=== PATIENT | female | born 1960 | race Caucasian/White ===

== ENCOUNTER → 2017-06-20 | Outpatient (CLI) | payer BC ==
[2017-06-20 14:01] LABS: BASO # 0.1 K/mm3 (0.0-0.2); BASO % 1.1 % (0.0-1.0); EOS # 0.1 K/mm3 (0.0-0.50); EOS % 1.5 % (0.0-3.0); LARGE UNSTAINED CELL # 0.2 K/mm3 (0.0-0.4); LARGE UNSTAINED CELL % 2.5 % (0.0-4.0); LYMPH # 1.7 K/mm3 (1.5-4.5); LYMPH % 23.9 % (24.0-44.0); MEAN CORPUSCULAR HEMOGLOBIN 33.5 pg (27.0-33.0); MEAN CORPUSCULAR HGB CONC 33.3 g/dl (32.0-36.5); MEAN CORPUSCULAR VOLUME 100.5 fl (80.0-96.0); MONO # 0.3 K/mm3 (0.0-0.8); NEUTROPHILS # 4.2 K/mm3 (1.8-7.7); PLATELET COUNT, AUTOMATED 301 k/mm3 (150-450); RED CELL DISTRIBUTION WIDTH 12.3 % (11.5-14.5); WHITE BLOOD COUNT 6.4 K/mm3 (4.0-10.0)
[2017-06-20 14:42] LABS: ALBUMIN 4.3 GM/DL (3.2-5.2); ALBUMIN/GLOBULIN RATIO 1.23 (1.00-1.93); ALKALINE PHOSPHATASE 87 U/L (45-117); ALT/SGPT 30 U/L (12-78); ANION GAP 8 MEQ/L (8-16); AST/SGOT 12 U/L (15-37); BILIRUBIN,TOTAL 0.5 MG/DL (0.2-1.0); BLOOD UREA NITROGEN 9 MG/DL (7-18); CALCIUM LEVEL 9.3 MG/DL (8.5-10.1); CARBON DIOXIDE LEVEL 25 MEQ/L (21-32); CHLORIDE LEVEL 98 MEQ/L (98-107); CHOLESTEROL LEVEL 230 MG/DL (<200); CREATININE FOR GFR 0.61 MG/DL (0.55-1.02); FREE T4 0.84 NG/DL (0.76-1.46); GLOMERULAR FILTRATION RATE > 60.0 (>51); GLUCOSE, FASTING 85 MG/DL (70-105); POTASSIUM SERUM 4.7 MEQ/L (3.5-5.1); SODIUM LEVEL 131 MEQ/L (136-145); TOTAL PROTEIN 7.8 GM/DL (6.4-8.2); TRIGLYCERIDES LEVEL 70 MG/DL (<150)
== END ==
LOC: M SMT 10:18
PROVIDERS: ATTEND Family Medicine
DX: Z13.220 Encounter for screening for lipoid disorders (principal); Z13.29 Encounter for screening for other suspected endocrine disorder; Z13.0 Encounter for screening for diseases of the blood and blood-forming organs and certain disorders involving the immune mechanism; Z13.820 Encounter for screening for osteoporosis; N95.1 Menopausal and female climacteric states

== ENCOUNTER → 2018-10-13 | Outpatient (CLI) | payer BC ==
[2018-10-13 13:00] LABS: BASO # 0.1 10^3/uL (0.0-0.2); EOS # 0.2 10^3/uL (0.0-0.50); EOS % 3.6 % (0.0-3.0); HEMATOCRIT 45.3 % (36.0-47.0); HEMOGLOBIN 15.1 g/dl (12.0-15.5); IMMATURE GRANULOCYTE % 0.2 % (0-3.0); LYMPH # 1.4 10^3/uL (1.5-4.5); LYMPH % 28.2 % (24.0-44.0); MEAN CORPUSCULAR HEMOGLOBIN 32.3 pg (27.0-33.0); MEAN CORPUSCULAR HGB CONC 33.3 g/dl (32.0-36.5); MEAN CORPUSCULAR VOLUME 96.8 fl (80.0-96.0); MONO # 0.5 10^3/uL (0.0-0.8); MONO % 8.9 % (0.0-5.0); NEUTROPHILS # 2.9 10^3/uL (1.8-7.7); NEUTROPHILS % 58.1 % (36.0-66.0); PLATELET COUNT, AUTOMATED 286 10^3/uL (150-450); RED BLOOD COUNT 4.68 10^6/uL (4.00-5.40); RED CELL DISTRIBUTION WIDTH 12.4 % (11.5-14.5)
[2018-10-13 13:27] LABS: ALBUMIN 3.9 GM/DL (3.2-5.2); ALBUMIN/GLOBULIN RATIO 1.03 (1.00-1.93); ALKALINE PHOSPHATASE 89 U/L (45-117); ALT/SGPT 39 U/L (12-78); ANION GAP 7 MEQ/L (8-16); AST/SGOT 20 U/L (7-37); BILIRUBIN,TOTAL 0.4 MG/DL (0.2-1.0); BLOOD UREA NITROGEN 11 MG/DL (7-18); CALCIUM LEVEL 9.1 MG/DL (8.5-10.1); CARBON DIOXIDE LEVEL 27 MEQ/L (21-32); CHLORIDE LEVEL 106 MEQ/L (98-107); CHOLESTEROL LEVEL 210 MG/DL (<200); CHOLESTEROL RISK RATIO 4.117 (<5); CREATININE FOR GFR 0.64 MG/DL (0.55-1.30); FREE T4 0.81 NG/DL (0.76-1.46); GLOMERULAR FILTRATION RATE > 60.0 (>51); GLUCOSE, FASTING 84 MG/DL (70-100); HDL CHOLESTEROL 51 MG/DL (>40); LDL CHOLESTEROL 146 MG/DL (<100); NON-HDL-C 159 MG/DL; POTASSIUM SERUM 5.4 MEQ/L (3.5-5.1); SODIUM LEVEL 140 MEQ/L (136-145); TOTAL 25(OH) VITAMIN D 22.9 NG/ML (30.0-100.0); TOTAL PROTEIN 7.7 GM/DL (6.4-8.2); TRIGLYCERIDES LEVEL 66 MG/DL (<150)
== END ==
LOC: M WUC 08:24
DX: E78.00 Pure hypercholesterolemia, unspecified (principal); E55.9 Vitamin D deficiency, unspecified; Z13.0 Encounter for screening for diseases of the blood and blood-forming organs and certain disorders involving the immune mechanism
CPT/HCPCS: 84443

== ENCOUNTER → 2018-12-14 | Outpatient (CLI) | payer BC ==
--- NOTE | 2018-12-14 14:20 | REP ---
FACIAL BONES, PARTIAL: 12/14/2018: Clinical history: Contusion. The patient states pain to central mandibular region after a fall. Findings: There are no prior studies. Three views were provided. Lateral AP and Prieto views were obtained. The mandibular condyles, rami and submental region show no visible or displaced fracture line. Frontal sinuses did not develop. Ethmoids are intact. Midline septum. I see no air-fluid levels in the maxillary sinuses with mucosal thickening as suggested left greater than right. Mastoids symmetric. Orbital floors intact. Orbital struts and medial orbital cutler unremarkable. On the lateral view. There is cervical spondylosis at C5-6 and C6-7 less at the other levels. No compression deformity or destructive lesion. Incidental finding noted of an impacted right mandibular 3rd molar. Impression: 1. No visible mandibular fracture. The other visualized bones were unremarkable. No air-fluid levels in the sinuses. Slight mucosal thickening maxillary antra. Orbital floors intact. Electronically Signed by Jonathon Cano MD 12/14/2018 04:38 P
--- NOTE | 2018-12-14 14:28 | REP ---
RIGHT HAND COMPLETE: 12/14/2018. Clinical history: Pain laterally after a fall. Thumb ring unable to remove due to swelling. Findings: No prior study. Distal radius and ulna without fracture or focal lesion. There is some spurring the distal pole of the scaphoid but no fracture or avulsion. The other carpal bones and joint spaces are intact. The metacarpals and phalanges show no fracture or focal lesion. MCP and IP joints show only minimal degenerative change. No erosion or fracture. Minor soft tissue swelling noted dorsal aspect of the hand over the MCP joints. Impression: 1. No visible or displaced fracture, avulsion, subluxation or other acute bony finding. 2. Minor soft tissue swelling and some minimal degenerative change. Electronically Signed by Jonathon Cano MD 12/14/2018 04:38 P
--- NOTE | 2018-12-15 07:11 | REP ---
BILATERAL SHOULDERS, COMPLETE: 12/14/2018. CLINICAL HISTORY: Trauma, bilateral shoulder pain. FINDINGS: RIGHT SHOULDER: Some AC joint arthritis with narrowing of the joint space and some inferior spurring at that joint. There is no fracture or focal lesion of the clavicle or ribs. There are minor degenerative changes inferiorly at the glenohumeral joint. No subluxation or dislocation of the humeral head from the glenoid. Visualized ribs intact. IMPRESSION: 1. AC and glenohumeral joint arthritis right shoulder without fracture, avulsion or other acute finding. LEFT SHOULDER: Some AC joint arthritis with narrowing of the joint space and some inferior spurring at that joint. No fracture or focal lesion of the clavicle or ribs. There are minor degenerative changes inferiorly at the glenohumeral joint. No subluxation or dislocation of the humeral head from the glenoid. Visualized ribs intact. IMPRESSION: 1. AC and glenohumeral joint arthritis left shoulder without fracture, avulsion or other acute finding. Electronically Signed by Jonathon Cano MD 12/15/2018 01:00 P
== END ==
LOC: M WUC 13:23
PROVIDERS: ATTEND Physician Assistant
DX: S00.83XA Contusion of other part of head, initial encounter (principal); S40.012A Contusion of left shoulder, initial encounter; S40.011A Contusion of right shoulder, initial encounter; S60.221A Contusion of right hand, initial encounter

== ENCOUNTER → 2019-11-30 | Outpatient (REF) | payer BC | LOC: M LAB REF 09:54 | PROVIDERS: ATTEND Physician Assistant | DX: N39.0 Urinary tract infection, site not specified (principal) ==

== ENCOUNTER → 2020-02-18 | Outpatient (REF) | payer BC ==
[2020-02-18 09:58] LABS: BASO # 0.1 10^3/uL (0.0-0.2); BASO % 1.4 % (0.0-1.0); EOS # 0.2 10^3/uL (0.0-0.5); EOS % 3.3 % (0.0-3.0); HEMATOCRIT 46.8 % (36.0-47.0); HEMOGLOBIN 15.7 g/dl (12.0-15.5); LYMPH # 1.6 10^3/uL (1.5-5.0); LYMPH % 27.3 % (24.0-44.0); MEAN CORPUSCULAR HEMOGLOBIN 33.3 pg (27.0-33.0); MEAN CORPUSCULAR HGB CONC 33.5 g/dl (32.0-36.5); MEAN CORPUSCULAR VOLUME 99.4 fl (80.0-96.0); MONO # 0.4 10^3/uL (0.0-0.8); MONO % 7.1 % (0.0-5.0); NEUTROPHILS # 3.5 10^3/uL (1.5-8.5); NEUTROPHILS % 60.7 % (36.0-66.0); PLATELET COUNT, AUTOMATED 323 10^3/uL (150-450); RED BLOOD COUNT 4.71 10^6/uL (4.00-5.40); WHITE BLOOD COUNT 5.8 10^3/uL (4.0-10.0)
[2020-02-18 10:39] LABS: ALBUMIN 4.2 GM/DL (3.2-5.2); ALT/SGPT 32 U/L (12-78); BILIRUBIN,TOTAL 0.4 MG/DL (0.2-1.0); BLOOD UREA NITROGEN 8 MG/DL (7-18); CALCIUM LEVEL 9.6 MG/DL (8.5-10.1); CARBON DIOXIDE LEVEL 27 MEQ/L (21-32); CHLORIDE LEVEL 101 MEQ/L (98-107); CHOLESTEROL LEVEL 208 MG/DL (<200); CHOLESTEROL RISK RATIO 3.851 (<5); CREATININE FOR GFR 0.63 MG/DL (0.55-1.30); FREE T4 0.83 NG/DL (0.76-1.46); GLOMERULAR FILTRATION RATE > 60.0 (>51); GLUCOSE, FASTING 79 MG/DL (70-100); HDL CHOLESTEROL 54 MG/DL (>40); LDL CHOLESTEROL 139 MG/DL (<100); NON-HDL-C 154 MG/DL; POTASSIUM SERUM 4.4 MEQ/L (3.5-5.1); SODIUM LEVEL 137 MEQ/L (136-145); THYROID STIMULATING HORMONE 0.779 uIU/ML (0.358-3.740); TOTAL PROTEIN 8.1 GM/DL (6.4-8.2); TRIGLYCERIDES LEVEL 76 MG/DL (<150)
== END ==
LOC: M LABDRAW1 07:30
PROVIDERS: ATTEND Physician Assistant
DX: Z00.00 Encounter for general adult medical examination without abnormal findings (principal); Z13.1 Encounter for screening for diabetes mellitus; Z13.0 Encounter for screening for diseases of the blood and blood-forming organs and certain disorders involving the immune mechanism; Z13.220 Encounter for screening for lipoid disorders

== ENCOUNTER → 2021-02-14 | Outpatient (REF) | payer BC | LOC: M WUC 19:19 → M LAB REF 19:19 | PROVIDERS: ATTEND Physician Assistant | DX: R30.0 Dysuria (principal) ==

== ENCOUNTER → 2021-02-24 | Outpatient (CLI) | payer BC ==
[2021-02-24 14:05] LABS: BASO # 0.1 10^3/uL (0.0-0.2); BASO % 0.7 % (0.0-1.0); EOS # 0.2 10^3/uL (0.0-0.5); EOS % 2.5 % (0.0-3.0); HEMATOCRIT 46.2 % (36.0-47.0); HEMOGLOBIN 15.2 g/dl (12.0-15.5); LYMPH # 1.7 10^3/uL (1.5-5.0); LYMPH % 20.5 % (24.0-44.0); MEAN CORPUSCULAR HGB CONC 32.9 g/dl (32.0-36.5); MEAN CORPUSCULAR VOLUME 100.2 fl (80.0-96.0); MONO # 0.6 10^3/uL (0.0-0.8); MONO % 7.5 % (2.0-8.0); NEUTROPHILS # 5.5 10^3/uL (1.5-8.5); NEUTROPHILS % 68.4 % (36.0-66.0); PLATELET COUNT, AUTOMATED 318 10^3/uL (150-450); RED BLOOD COUNT 4.61 10^6/uL (4.00-5.40); WHITE BLOOD COUNT 8.1 10^3/uL (4.0-10.0)
[2021-02-24 14:42] LABS: ALT/SGPT 29 U/L (12-78); BILIRUBIN,TOTAL 0.5 MG/DL (0.2-1.0); BLOOD UREA NITROGEN 5 MG/DL (7-18); CALCIUM LEVEL 9.3 MG/DL (8.5-10.1); CARBON DIOXIDE LEVEL 27 MEQ/L (21-32); CHLORIDE LEVEL 105 MEQ/L (98-107); CHOLESTEROL LEVEL 199 MG/DL (<200); CHOLESTEROL RISK RATIO 3.491 (<5); CREATININE FOR GFR 0.63 MG/DL (0.55-1.30); FREE T4 0.83 NG/DL (0.76-1.46); GLOMERULAR FILTRATION RATE > 60.0 (>51); GLUCOSE, FASTING 97 MG/DL (70-100); HDL CHOLESTEROL 57 MG/DL (>40); LDL CHOLESTEROL 130 MG/DL (<100); NON-HDL-C 142 MG/DL; POTASSIUM SERUM 4.9 MEQ/L (3.5-5.1); SODIUM LEVEL 137 MEQ/L (136-145); THYROID STIMULATING HORMONE 0.936 uIU/ML (0.358-3.740); TOTAL PROTEIN 7.6 GM/DL (6.4-8.2); TRIGLYCERIDES LEVEL 58 MG/DL (<150)
[2021-02-24 14:51] LABS: TOTAL 25(OH) VITAMIN D 21.7 NG/ML (30.0-100.0)
== END ==
LOC: M PLALAB 09:15
PROVIDERS: ATTEND Family Medicine
DX: E55.9 Vitamin D deficiency, unspecified (principal); E78.00 Pure hypercholesterolemia, unspecified; Z13.29 Encounter for screening for other suspected endocrine disorder; Z13.0 Encounter for screening for diseases of the blood and blood-forming organs and certain disorders involving the immune mechanism

== ENCOUNTER → 2021-03-10 | Outpatient (CLI) | payer BC ==
--- NOTE | 2021-03-10 11:29 | REPMRS ---
Patient History The patient states she has not had a clinical breast exam in over a year. Patient is postmenopausal. No known family history of cancer. Digital Woman Screen Mammo: March 10, 2021 - Exam #: [id number] Bilateral CC and MLO view(s) were taken. Technologist: Halley Carbajal Technologist Prior study comparison: June 28, 2017, bilateral digital mammo screening bilat, performed at [facility]. May 03, 2009, bilateral digital mammo screening bilat, performed at [facility]. FINDINGS: There are scattered fibroglandular densities. The Volpara volumetric breast density category is:B. There has been no change in the appearance of the mammogram from the prior studies. There is a mild amount of scattered fibroglandular density which is fairly symmetric. There is no interval development of dominant mass, architectural distortion, or grouped microcalcification suggestive of malignancy. 3-D tomosynthesis shows no additional findings. Assessment: BI-RADS/ACR category 1 mammogram. Negative Mammogram. Recommendation Routine screening mammogram of both breasts in 1 year (for women over age 40). This patient's [facility] Lifetime Breast Cancer Risk is estimated at 4.7 %. This mammogram was interpreted with the aid of an FDA-approved computer-aided dectection system. Electronically Signed By: Isai Borrero MD 03/10/21 1122
== END ==
LOC: M WHC 10:27
PROVIDERS: ATTEND Family Medicine
DX: Z12.31 Encounter for screening mammogram for malignant neoplasm of breast (principal)

== ENCOUNTER → 2022-07-11 | Outpatient (CLI) | payer BC ==
[2022-07-11 15:46] LABS: BASO # 0.1 10^3/uL (0.0-0.2); BASO % 1.3 % (0.0-1.0); EOS # 0.1 10^3/uL (0.0-0.5); EOS % 1.1 % (0.0-3.0); HEMATOCRIT 45.6 % (36.0-47.0); LYMPH % 31.2 % (24.0-44.0); MEAN CORPUSCULAR HEMOGLOBIN 32.8 pg (27.0-33.0); MEAN CORPUSCULAR HGB CONC 32.9 g/dl (32.0-36.5); MEAN CORPUSCULAR VOLUME 99.6 fl (80.0-96.0); MONO # 0.5 10^3/uL (0.0-0.8); MONO % 7.7 % (2.0-8.0); NEUTROPHILS # 3.7 10^3/uL (1.5-8.5); NEUTROPHILS % 58.4 % (36.0-66.0); PLATELET COUNT, AUTOMATED 306 10^3/uL (150-450); RED BLOOD COUNT 4.58 10^6/uL (4.00-5.40); WHITE BLOOD COUNT 6.4 10^3/uL (4.0-10.0)
[2022-07-11 17:08] LABS: CK-MB VALUE MASS < 1.0 NG/ML (<3.6); CPK CREATINE PHOSPHOKINASE 72 U/L (26-192); MB/CK RELATIVE INDEX 1.39 (< OR =4)
[2022-07-11 17:09] LABS: BLOOD UREA NITROGEN 9 MG/DL (7-18); CARBON DIOXIDE LEVEL 29 MEQ/L (21-32); CHLORIDE LEVEL 103 MEQ/L (98-107); CREATININE FOR GFR 0.65 MG/DL (0.55-1.30); GLOMERULAR FILTRATION RATE > 60.0 (>45); GLUCOSE, FASTING 87 MG/DL (70-100); POTASSIUM SERUM 5.1 MEQ/L (3.5-5.1); SODIUM LEVEL 134 MEQ/L (136-145)
[2022-07-11 17:10] LABS: ALBUMIN 4.1 GM/DL (3.2-5.2); ALT/SGPT 35 U/L (12-78); BILIRUBIN,TOTAL 0.8 MG/DL (0.2-1.0); CALCIUM LEVEL 9.6 MG/DL (8.8-10.2); CHOLESTEROL LEVEL 200 MG/DL (<200); CHOLESTEROL RISK RATIO 3.125 (<5); FERRITIN 171 NG/ML (8-252); FREE T4 0.84 NG/DL (0.76-1.46); HDL CHOLESTEROL 64 MG/DL (>40); IRON (FE) 114 UG/DL (50-170); LDL CHOLESTEROL 129 MG/DL (<100); NON-HDL-C 136 MG/DL; PERCENT SATURATION 30.3 % (13.2-45.0); TOTAL IRON BINDING CAPACITY 376 UG/DL (250-450); TRIGLYCERIDES LEVEL 36 MG/DL (<150)
[2022-07-11 17:44] LABS: TOTAL 25(OH) VITAMIN D 32.9 NG/ML (30.0-100.0); VITAMIN B12 LEVEL 459 PG/ML (247-911)
== END ==
LOC: M PLALAB 12:18
PROVIDERS: ATTEND Family Medicine
DX: E55.9 Vitamin D deficiency, unspecified (principal)

== ENCOUNTER → 2022-09-25 | Outpatient (CLI) | payer BC ==
[2022-09-25 12:24] LABS: HEMATOCRIT 47.4 % (36.0-47.0); HEMOGLOBIN 16.4 g/dl (12.0-15.5); MEAN CORPUSCULAR HEMOGLOBIN 33.4 pg (27.0-33.0); MEAN CORPUSCULAR HGB CONC 34.6 g/dl (32.0-36.5); MEAN CORPUSCULAR VOLUME 96.5 fl (80.0-96.0); PLATELET COUNT, AUTOMATED 330 10^3/uL (150-450); RED BLOOD COUNT 4.91 10^6/uL (4.00-5.40)
[2022-09-25 13:08] LABS: ALBUMIN 4.6 GM/DL (3.2-5.2); ALT/SGPT 42 U/L (12-78); BILIRUBIN,TOTAL 0.5 MG/DL (0.2-1.0); BLOOD UREA NITROGEN 10 MG/DL (7-18); CALCIUM LEVEL 10.3 MG/DL (8.8-10.2); CARBON DIOXIDE LEVEL 29 MEQ/L (21-32); CHLORIDE LEVEL 87 MEQ/L (98-107); CREATININE FOR GFR 0.71 MG/DL (0.55-1.30); GLOMERULAR FILTRATION RATE > 60.0 (>45); GLUCOSE, FASTING 88 MG/DL (70-100); NT-PRO BNP 102 PG/ML (<125); POTASSIUM SERUM 4.9 MEQ/L (3.5-5.1); SODIUM LEVEL 125 MEQ/L (136-145); THYROID STIMULATING HORMONE 0.798 uIU/ML (0.358-3.740); TOTAL PROTEIN 8.7 GM/DL (6.4-8.2)
== END ==
LOC: M WUC 08:59
PROVIDERS: ATTEND Internal Medicine Cardiovascular Disease
DX: I10 Essential (primary) hypertension (principal); R06.02 Shortness of breath

== ENCOUNTER → 2025-10-17 | Outpatient (REF) | payer BC | LOC: M LAB REF 12:10 | PROVIDERS: ATTEND Physician Assistant | DX: R30.0 Dysuria (principal) ==